=== PATIENT | female | born 1965 | race Caucasian/White ===

== ENCOUNTER 2016-09-11 08:23 | Outpatient (CLI) ==
[2015-11-06 04:05] VITALS: BMI 25.8
[2016-09-11 13:08] LABS: ALBUMIN/GLOBULIN RATIO 1.03; ANION GAP 16.3; BILIRUBIN,TOTAL 0.26 mg/dL (0.00-1.20); BUN/CREATININE RATIO 25.53; CALCIUM 9.9 mg/dL (8.2-10.2); CHOL/HDL RATIO 2.6 (4.5-5.5); CREATININE 0.94 mg/dL (0.60-1.30); POTASSIUM 4.3 mmol/L (3.5-5.10); TOTAL PROTEIN 7.9 g/dL (6.4-8.2)
== END 2016-09-11 08:24 | disposition home or self-care (01) ==
LOC: LAB 08:23
PROVIDERS: ATTEND Nurse Practitioner Family
DX: I10 Essential (primary) hypertension (principal); E78.5 Hyperlipidemia, unspecified
CPT/HCPCS: 36415; 80053; 80061

== ENCOUNTER 2017-01-16 11:55 | Outpatient (CLI) ==
[2015-11-06 04:05] VITALS: BMI 25.8
[2017-01-16 12:54] LABS: BASOPHILS % (AUTO) 0.2 % (0.0-3.0); EOSINOPHILS # (AUTO) 0.1 K/ul (0.0-0.7); EOSINOPHILS % (AUTO) 1.2 % (0.0-7.0); HEMATOCRIT 38.2 % (37.0-47.0); HEMOGLOBIN 12.4 g/dl (12.0-16.0); IMMATURE GRANULOCYTE % (AUTO) 0.6 % (0.0-5.0); LYMPHOCYTES # (AUTO) 1.6 K/uL (0.60-3.4); LYMPHOCYTES % (AUTO) 15.6 (10.0-50.0); MEAN CORPUSCULAR HEMOGLOBIN 30.2 pg (27.0-31.0); MEAN CORPUSCULAR HGB CONC 32.5 (31.8-35.4); MEAN CORPUSCULAR VOLUME 92.9 fl (81.0-99.0); MONOCYTES # (AUTO) 0.4 K/uL (0.4-2.0); MONOCYTES % (AUTO) 4.1 (0-10); NEUTROPHILS % (AUTO) 78.3; PLATELET COUNT 245 10^3/uL (140-440); RED BLOOD COUNT 4.11 10^6/ul (4.20-5.40); WHITE BLOOD COUNT 10.24 K/ul (4.6-10.2)
== END 2017-01-16 11:56 | disposition home or self-care (01) ==
LOC: LAB 11:55
PROVIDERS: ATTEND Nurse Practitioner Family
DX: R53.83 Other fatigue (principal)
CPT/HCPCS: 36415; 85025

== ENCOUNTER 2017-02-05 10:58 | Outpatient (CLI) ==
[2015-11-06 04:05] VITALS: BMI 25.8
--- NOTE | 2017-02-05 11:40 | MAMMO ---
EXAM: Bilateral digital screening mammogram. History: Screening Comparison: Bilateral mammogram 03/28/2015 Findings: MLO and CC views of bilateral breasts demonstrate heterogeneously dense breast parenchyma which can obscure small lesions. There are no dominant masses, no suspicious microcalcifications a nd no architectural distortions Impression: Negative mammogram with no significant interval change. Recommend followup routine scr eening mammography in 1 year. BIRADS 1
== END 2017-02-05 10:59 | disposition home or self-care (01) ==
LOC: RAD 10:58
PROVIDERS: ATTEND Nurse Practitioner Family
DX: Z12.31 Encounter for screening mammogram for malignant neoplasm of breast (principal)

== ENCOUNTER 2017-03-05 17:58 | Outpatient (CLI) ==
[2015-11-06 04:05] VITALS: BMI 25.8
== END 2017-03-05 17:59 | disposition home or self-care (01) ==
LOC: AMBL 17:58
PROVIDERS: ATTEND Emergency Medicine
DX: R06.4 Hyperventilation (principal); F41.9 Anxiety disorder, unspecified

== ENCOUNTER 2017-09-24 10:05 | Emergency (ER) ==
[2017-09-24 10:06] VITALS: BMI 25.8
[2017-09-24 10:09] VITALS: BP 191/101; TEMP 97.8
--- NOTE | 2017-09-24 10:21 | ED.PDOC ---
General ED Provider: Dr. TATUM SUH Chief Complaint: Tooth Problem Stated Complaint: tooth ache Time Seen by Physician: 10:00 (seen with tila) Mode of Arrival: Walk-In Information Source: Patient Exam Limitations: No limitations [facility] Nursing and Triage Documentation Reviewed and Agree: Yes Reviewed sepsis parameters & appropriate labs ordered?: Yes System Inflammatory Response Syndrome: Not Applicable Sepsis Protocol: For patient's 13 years and over: Temp is 96.8 and below OR 101 and greater Pulse >90 BPM Resp >20/minute Acutely Altered Mental Status Are patient's symptoms suggestive of a new infection, such as: -Pneumonia -Skin, Soft Tissue -Endocarditis -UTI -Bone, Joint Infection -Implantable Device -Acute Abdominal Infection -Wound Infection -Meningitis -Blood Stream Catheter Infection -Unknown System Inflammatory Response Syndrome: Not Applicable EENT Complaint Exam - Dental/Oral Complaint/Exam Mechanism of Injury: No known trauma Onset/Duration: 3 days Symptoms Are: Still present Timing: Intermittent Initial Severity: Moderate Current Severity: Moderate Character: Reports: Aching, Throbbing Aggravating: Reports: Heat, Cold, Chewing Alleviating: Reports: None. Denies: OTC Meds Associated Signs and Symptoms: Denies: Swelling, Discharge, Fever, Foul odor, Foul taste in mouth Dental/Oral Surgical History: Reports: None Tooth Findings: Present: Gross caries Cervical Lymphadenopathy Present: No Facial Swelling Present: No Bleeding Present: No Oropharynx Findings: Absent: Clots, Active bleeding Septal Hematoma: No Foreign Body Present: No Dysphagia Present: No Drooling Present: No Asymmetrical Tonsillar Swelling Present: No Uvula Midline: Yes Tiffany-tonsillar Fluctuence: No Trismus Present: No Palatal Petechiae Present: No Scarlatinaform Rash Present: No Teeth Picture: 1 - decay Differential Diagnoses: Dental Caries, Trauma Review of Systems - Review Of Systems Constitutional: Reports: No symptoms Eyes: Reports: No symptoms Ears, Nose, Mouth, Throat: Reports: No symptoms Respiratory: Reports: No symptoms Cardiac: Reports: No symptoms GI: Reports: No symptoms : Reports: No symptoms Musculoskeletal: Reports: No symptoms Skin: Reports: No symptoms Neurological: Reports: No symptoms Endocrine: Reports: No symptoms Hematologic/Lymphatic: Reports: No symptoms All Other Systems: Reviewed and Negative Past Medical History - Past Medical History Previously Healthy: Yes Endocrine: Reports: None Cardiovascular: Reports: Hypertension Respiratory: Reports: COPD, Asthma Hematological: Reports: None Gastrointestinal: Reports: None Genitourinary: Reports: None Neuro/Psych: Reports: Anxiety, Depression Musculoskeletal: Reports: None Cancer: Reports: None Last Menstrual Period: N/A Other Pertinent Past Medical History: chronic bronchitis/ADHD - Surgical History General Surgical History: Reports: Unknown - Family History Family History: Reports: Unknown - Social History Smoking Status: Current every day smoker, Heavy tobacco smoker Hx Substance Use: No Alcohol Screening: Heavy - Immunizations Tetanus Shot up to Date: No Physical Exam - Physical Exam Appearance: Well-appearing, No pain distress, Well-nourished Eyes: JAVIER, EOMI, Conjunctiva clear ENT: Ears normal, Nose normal, Oropharynx normal Respiratory: Airway patent, Breath sounds clear, Breath sounds equal, Respirations nonlabored Cardiovascular: RRR, Pulses normal, No rub, No murmur GI/: Soft, Nontender, No masses, Bowel sounds normal, No Organomegaly Musculoskeletal: Normal strength, ROM intact, No edema, No calf tenderness Skin: Warm, Dry, Normal color Neurological: Sensation intact, Motor intact, Reflexes intact, Cranial nerves intact, Alert, Oriented Psychiatric: Affect appropriate, Mood appropriate Critical Care Note - Critical Care Note Total Time (mins): 0 Course - Course Vital Signs: Temp Pulse Resp BP Pulse Ox 09/24/17 10:06 97.8 F 95 H 20 191/101 H 98 Departure - Departure Time of Disposition: 10:21 (with tila at bedside i told pt no alcohol while on these meds serious or even fatal sideeffects if she does pt understood) Disposition: HOME SELF-CARE Discharge Problem: Pain, dental Instructions: Dental Caries (GEN), Toothache (ED) Condition: Good Pt referred to PMD for follow-up: Yes IPMP verified?: Yes Additional Instructions: Please call your Family Physician as soon as possible to schedule a follow-up appointment. Prescriptions: Hydrocodone/Acetaminophen [Borden 10-325 Tablet] 1 each PO Q8HR #12 tablet Metronidazole [Flagyl] 500 mg PO Q8HR #20 tablet Allergies/Adverse Reactions: Allergies clindamycin Allergy (Severe, Unverified 09/24/17 10:09) Swelling naproxen Allergy (Verified 09/24/17 10:09) Swelling Penicillins Adverse Reaction (Verified 09/24/17 10:09) Swelling Home Medications: Ambulatory Orders Albuterol Sulfate [Albuterol Sulfate Hfa] 2 inh IH QID 11/06/15 Ibuprofen 800 mg PO BID PRN 02/12/16 Trazodone HCl 100 mg PO BEDTIME #30 08/01/16 Hydrocodone/Acetaminophen [Borden 10-325 Tablet] 1 each PO Q8HR #12 tablet Metronidazole [Flagyl] 500 mg PO Q8HR #20 tablet 09/24/17
== END 2017-09-24 10:40 | disposition home or self-care (01) ==
LOC: ED 10:05
DX: K08.89 Other specified disorders of teeth and supporting structures (principal); K02.7 Dental root caries; F17.210 Nicotine dependence, cigarettes, uncomplicated
CPT/HCPCS: 99282

== ENCOUNTER 2017-12-05 16:01 | Outpatient (CLI) | END 2017-12-05 16:02 | disposition home or self-care (01) | LOC: RHC-LAB 16:01 | PROVIDERS: ATTEND Nurse Practitioner Family | DX: E78.5 Hyperlipidemia, unspecified (principal); I10 Essential (primary) hypertension; J44.9 Chronic obstructive pulmonary disease, unspecified; Z72.0 Tobacco use | CPT/HCPCS: 36415; 80053; 80061; 84443; 85025 ==

== ENCOUNTER 2018-09-22 10:46 | Outpatient (CLI) ==
[2018-07-18 14:40] VITALS: BMI 24.5
== END 2018-09-22 10:47 | disposition home or self-care (01) ==
LOC: RHC-LAB 10:46
PROVIDERS: ATTEND Nurse Practitioner Family
DX: I10 Essential (primary) hypertension (principal); R00.0 Tachycardia, unspecified; E78.5 Hyperlipidemia, unspecified
CPT/HCPCS: 36415; 80053; 80061

== ENCOUNTER 2018-10-26 16:39 | Emergency (ER) ==
[2018-10-26 16:43] VITALS: BP 113/66; TEMP 97.5; BMI 23.5
== END 2018-10-26 17:03 | disposition left against medical advice (07) ==
LOC: ED 16:39
DX: K08.89 Other specified disorders of teeth and supporting structures (principal); F17.210 Nicotine dependence, cigarettes, uncomplicated

== ENCOUNTER 2018-12-28 13:24 | Emergency (ER) ==
[2018-12-28 13:28] VITALS: BP 136/75; TEMP 98.2; BMI 22.8
--- NOTE | 2018-12-28 14:40 | DI ---
EXAM: CHEST FRONTAL AND LATERAL VIEWS HISTORY: Cough. COMPARISON: 07/18/2018 FINDINGS: Heart size and mediastinal contour remain within normal limits. Lungs are mildly hyperi nflated. No acute infiltrates are seen. No vascular congestion. There is no consolidation, visible pleural fluid or pneumothorax. Bones reveal no acute fracture. IMPRESSION: Hyperinflation. No acute cardiopulmonary process.
--- NOTE | 2018-12-28 14:48 | ED.PDOC ---
General ED Provider: Dr. TATUM SUH Chief Complaint: Weakness Stated Complaint: generalized weakness for weeks pt admitts to alcohol abuse but stated does not drink as much on some occasion drinks excessively but the frequnecy is not as much before . Time Seen by Physician: 13:30 (may corral present at all times ) Mode of Arrival: Walk-In Information Source: Patient Exam Limitations: No limitations Primary Care Provider: SONJA ALARCON Nursing and Triage Documentation Reviewed and Agree: Yes Does patient meet sepsis criteria?: No System Inflammatory Response Syndrome: Not Applicable Sepsis Protocol: For patient's 13 years and over: Temp is 96.8 and below OR 101 and greater Pulse >90 BPM Resp >20/minute Acutely Altered Mental Status Are patient's symptoms suggestive of a new infection, such as: -Pneumonia -Skin, Soft Tissue -Endocarditis -UTI -Bone, Joint Infection -Implantable Device -Acute Abdominal Infection -Wound Infection -Meningitis -Blood Stream Catheter Infection -Unknown Neurological Complaint Exam - Weakness Complaint/Exam Last Known Well: stated long time ago Onset: Gradual Duration: chronic Symptoms Are: Still present Timing: Constant Episodes Lasting: Weeks Initial Severity: Mild Current Severity: Mild Character: Reports: Weak Aggravating: Reports: None Alleviating: Reports: None Associated Signs and Symptoms: Denies: Nausea, Vomiting, Diaphoresis, Tinnitus, Chest pain, Short of air, Palpitations, Unsteady gait, GI blood loss, Visual changes, Decreased oral intake, Change in medication, Change in diet, OTC meds, Loss of balance Related History: Similar episode Cardiac Risk Factors: Reports: None CVA Risk Factors: Reports: None Related Surgical History: Reports: None JVD Present: No Carotid Bruit Present: No Rectal Heme Positive: No Glascow Coma Scale (see protocol): 15 Nystagmus Present: No Gag Reflex Present: Yes Meningeal Signs Positive: No Focal Weakness: Present: None Focal Sensory Loss: Present: None Gait: Normal Differential Diagnoses: Hypovolemia, GI Bleed, Metabolic abnormalities, Vasovagal reaction Quality Indicators for Cardiac Chest Pain: EKG in 10min. Quality Indicators for AMI: EKG in 10min. Quality Indicator For Non-Traumatic Chest Pain/Syncope: EKG Performed Review of Systems - Review Of Systems Constitutional: Reports: Malaise, Weakness Eyes: Reports: No symptoms Ears, Nose, Mouth, Throat: Reports: No symptoms Respiratory: Reports: No symptoms Cardiac: Reports: No symptoms GI: Reports: No symptoms : Reports: No symptoms Musculoskeletal: Reports: No symptoms Skin: Reports: No symptoms Neurological: Reports: No symptoms Endocrine: Reports: No symptoms Hematologic/Lymphatic: Reports: No symptoms All Other Systems: Reviewed and Negative Past Medical History - Past Medical History Previously Healthy: Yes Endocrine: Reports: None Cardiovascular: Reports: Hypertension Respiratory: Reports: COPD, Asthma Hematological: Reports: None Gastrointestinal: Reports: None Genitourinary: Reports: None Neuro/Psych: Reports: Anxiety, Depression Musculoskeletal: Reports: None Cancer: Reports: None Last Menstrual Period: NONE Other Pertinent Past Medical History: chronic bronchitis/ADHD - Surgical History General Surgical History: Reports: Unknown - Family History Family History: Reports: Unknown - Social History Smoking Status: Current every day smoker, Heavy tobacco smoker Hx Substance Use: No Alcohol Screening: Heavy Physical Exam - Physical Exam Appearance: Well-appearing, No pain distress, Well-nourished Eyes: JAVIER, EOMI, Conjunctiva clear ENT: Ears normal, Nose normal, Oropharynx normal Respiratory: Airway patent, Breath sounds clear, Breath sounds equal, Respirations nonlabored Cardiovascular: RRR, Pulses normal, No rub, No murmur GI/: Soft, Nontender, No masses, Bowel sounds normal, No Organomegaly Musculoskeletal: Normal strength, ROM intact, No edema, No calf tenderness Skin: Warm, Dry, Normal color Neurological: Sensation intact, Motor intact, Reflexes intact, Cranial nerves intact, Alert, Oriented Psychiatric: Affect appropriate, Mood appropriate - NIH Stroke Scale 1a. Level of Consciousness: 0=Alert and keenly responsive 1b. Level of Consciousness Questions: 0=Answers correctly to two questions 1c. Level of Consciousness Commands: 0=Performs two tasks correctly 2. Best Gaze: 0=Normal 3. Visual: 0=No visual loss 4. Facial Palsy: 0=Normal 5a. Motor Left Arm: 0=No drift,arm holds 90 degrees for 10 sec., leg 30 degrees for 5 sec. 5b. Motor Right Arm: 0=No drift,arm holds 90 degrees for 10 sec., leg 30 degrees for 5 sec. 6a. Motor Left Le=No drift,arm holds 90 degrees for 10 sec., leg 30 degrees for 5 sec. 6b. Motor Right Le=No drift,arm holds 90 degrees for 10 sec., leg 30 degrees for 5 sec. 7. Limb Ataxia: 0=Absent 8. Sensory: 0=Normal 9. Best Language: 0=No aphasia 10. Dysarthria: 0=Normal 11. Extincion and Inattention: 0=Normal Stroke Scale Total: 0 Interpretation - Radiology Interpretation Radiology Interpretation By: Radiologist Radiology Results: Negative Exam Interpreted: CXR Re-Evaluation - Re-Evaluation Time of Re-Evaluation: 14:00 Status: Unchanged Vital Signs Stable: Yes Pain Level: 0 Appearance: NAD Lungs: Clear Skin: Warm and Dry Neuro: Alert and Oriented X3 CV: RRR - Re-Evaluation Time of Re-Evaluation: 14:49 Status: Unchanged Vital Signs Stable: Yes Pain Level: 0 Appearance: NAD Skin: Warm and Dry Neuro: Alert and Oriented X3 CV: RRR Critical Care Note - Critical Care Note Total Time (mins): 0 Course - Course Hematology/Chemistry: 12/28/18 14:13 12/28/18 14:13 Orders, Labs, Meds: Lab Review 12/28/18 12/28/18 12/28/18 14:05 14:13 14:13 WBC 7.76 RBC 3.76 L Hgb 11.6 L Hct 34.7 L MCV 92.3 MCH 30.9 MCHC 33.4 RDW Coeff of Kaleb 13.7 Plt Count 251 Immature Gran % (Auto) 0.3 Neut % (Auto) 56.8 Lymph % (Auto) 32.0 Hudson % (Auto) 9.5 Eos % (Auto) 1.0 Baso % (Auto) 0.4 Immature Gran # (Auto) 0.0 Neut # (Auto) 4.4 Lymph # (Auto) 2.5 Hudson # (Auto) 0.7 Eos # (Auto) 0.1 Baso # (Auto) 0.0 PT 9.5 INR 0.95 APTT 24.2 Sodium Potassium Chloride Carbon Dioxide Anion Gap BUN Creatinine Estimated GFR (MDRD) BUN/Creatinine Ratio Glucose Calcium Total Bilirubin AST ALT Alkaline Phosphatase Total Protein Albumin Globulin Albumin/Globulin Ratio Stl Occult Blood (IFOB) Negative Stool Occult Blood #2 No specimen received Stool Occult Blood #3 No specimen received 12/28/18 14:13 WBC RBC Hgb Hct MCV MCH MCHC RDW Coeff of Kaleb Plt Count Immature Gran % (Auto) Neut % (Auto) Lymph % (Auto) Hudson % (Auto) Eos % (Auto) Baso % (Auto) Immature Gran # (Auto) Neut # (Auto) Lymph # (Auto) Hudson # (Auto) Eos # (Auto) Baso # (Auto) PT INR APTT Sodium 140.9 Potassium 4.13 Chloride 104.9 Carbon Dioxide 24.5 Anion Gap 15.63 BUN 48.5 H Creatinine 1.19 Estimated GFR (MDRD) 48.00 BUN/Creatinine Ratio 40.75 Glucose 92.9 Calcium 10.06 Total Bilirubin 0.24 AST 43.3 H ALT 23.6 Alkaline Phosphatase 59.7 Total Protein 8.02 Albumin 5.08 H Globulin 2.94 Albumin/Globulin Ratio 1.72 Stl Occult Blood (IFOB) Stool Occult Blood #2 Stool Occult Blood #3 Orders Category Date Time Status EKG-(ED ONLY) Stat CARDIO 12/28/18 14:06 Completed CBC W/ AUTO DIFF Stat LAB 12/28/18 14:13 Completed COMPREHENSIVE METABOLIC PANEL Stat LAB 12/28/18 14:13 Completed OCCULT BLOOD, STOOL Stat LAB 12/28/18 14:05 Completed PARTIAL THROMBOPLASTIN TIME Stat LAB 12/28/18 14:13 Completed PT WITH INR Stat LAB 12/28/18 14:13 Completed URINALYSIS C & S IF INDICATED Stat LAB 12/28/18 14:01 Uncollected CHEST, 2 VIEWS PA & LAT Stat RADS 12/28/18 14:01 Completed Vital Signs: Temp Pulse Resp BP Pulse Ox 12/28/18 13:24 98.2 F 122 H 20 136/75 95 Departure - Departure Time of Disposition: 14:49 Disposition: HOME SELF-CARE Discharge Problem: Generalized weakness Instructions: Weakness (ED) Condition: Good Pt referred to PMD for follow-up: Yes IPMP verified?: No Additional Instructions: Please call your Family Physician as soon as possible to schedule a follow-up appointment. Allergies/Adverse Reactions: Allergies clindamycin Allergy (Severe, Verified 12/28/18 13:29) Swelling naproxen Allergy (Verified 12/28/18 13:29) Swelling Penicillins Adverse Reaction (Verified 12/28/18 13:29) Swelling Home Medications: Ambulatory Orders Albuterol Sulfate [Albuterol Sulfate Hfa] 2 inh IH QID 11/06/15 Ibuprofen 800 mg PO BID PRN 02/12/16 Trazodone HCl 100 mg PO BEDTIME #30 08/01/16 Guanfacine HCl [Guanfacine Hcl Er] 2 mg PO DAILY 09/22/18
== END 2018-12-28 14:56 | disposition home or self-care (01) ==
LOC: ED 13:24
DX: R53.1 Weakness (principal); F10.10 Alcohol abuse, uncomplicated; F17.210 Nicotine dependence, cigarettes, uncomplicated
CPT/HCPCS: 36415; 80053; 82272; 85025; 85610; 85730; 93005; 93010; 99283

== ENCOUNTER 2018-12-31 15:15 | Outpatient (CLI) | END 2018-12-31 15:16 | disposition home or self-care (01) | LOC: RHC-LAB 15:15 | PROVIDERS: ATTEND Nurse Practitioner Family | DX: R53.1 Weakness (principal); D64.9 Anemia, unspecified | CPT/HCPCS: 36415; 82607; 82728; 82746; 83540; 83550; 84443; 84466; 85045 ==

== ENCOUNTER 2019-01-07 16:10 | Outpatient (CLI) ==
--- NOTE | 2019-01-07 17:00 | CT ---
EXAM: CT Head HISTORY: Unspecified fall, initial encounter COMPARISON: 04/03/2012 TECHNIQUE: CT head performed without contrast FINDINGS: There is no mass effect, midline shift, or intracranial hemmorhage. Olivarez white differenti ation is preserved. There is no extra-axial collection. The ventricles, sulci, and basal cisterns a re patent and symmetric. There is no depressed calvarial fracture. The mastoid air cells are clear. The visualized paranasal sinuses are clear. Intracranial atherosclerotic vascular calcifications. IMPRESSION: No acute intracranial abnormality.
== END 2019-01-07 16:11 | disposition home or self-care (01) ==
LOC: RAD 16:10
PROVIDERS: ATTEND Nurse Practitioner Family
DX: S09.90XA Unspecified injury of head, initial encounter (principal); R42 Dizziness and giddiness; R51 Headache; W19.XXXA Unspecified fall, initial encounter